=== PATIENT | female | born 1980 | race Asian ===

== ENCOUNTER 2017-01-23 18:17 | Emergency (ER) | payer OTHER ==
[~2017-01-23] VITALS: Ht 160 cm; Wt 49.9 kg
[2017-01-23 18:41] VITALS: BP_SYST 92
[2017-01-23 21:00] VITALS: BP_SYST 108
== END 2017-01-23 21:00 | disposition home or self-care (01) ==
LOC: SED 18:17
DX: S00.03XA Contusion of scalp, initial encounter (principal); M54.2 Cervicalgia; W20.8XXA Other cause of strike by thrown, projected or falling object, initial encounter; Y93.89 Activity, other specified; Y92.89 Other specified places as the place of occurrence of the external cause; Y99.8 Other external cause status
CPT/HCPCS: 70450-TC; 72125-TC; 99284